=== PATIENT | female | born 1990 | race Caucasian/White ===

== ENCOUNTER 2017-02-10 17:10 | Emergency (ER) | payer MEDICAID ==
[~2017-02-10] VITALS: Ht 154.9 cm; Wt 113.4 kg
[2017-02-10 17:20] VITALS: BP 128/81
== END 2017-02-10 18:28 | disposition home or self-care (01) ==
LOC: ER 17:12
DX: H66.92 Otitis media, unspecified, left ear (principal)
CPT/HCPCS: 84703-TC; A4606; Q0162; Z7610

== ENCOUNTER 2020-08-15 16:14 | Emergency (ER) | payer MEDICAID ==
[~2020-08-15] VITALS: Ht 154.9 cm; Wt 76.2 kg
[2020-08-15 16:30] VITALS: BP 133/82
[2020-08-15] MEDS ORDERED: IBUP-1955 PO (18:30)
[2020-08-15] MEDS ORDERED: DOCO2CRE TP (18:30)
[2020-08-15] MEDS ORDERED: BENZ-13 PO (18:31)
--- NOTE | 2020-08-15 18:52 | NUR ---
Patient discharged to home in stable condition. Written and verbal after care instructions given. Patient verbalizes understanding of instruction.
== END 2020-08-15 18:52 | disposition home or self-care (01) ==
LOC: ER 16:24
DX: B34.9 Viral infection, unspecified (principal); B00.1 Herpesviral vesicular dermatitis; Z79.899 Other long term (current) drug therapy

== ENCOUNTER 2020-12-02 03:17 | Emergency (ER) | payer MEDICAID ==
[~2020-12-02] VITALS: Ht 154.9 cm; Wt 74.8 kg
[~2020-12-02 03:17] MED LIST: BENZ-13 PO; DOCO2CRE TP; IBUP-1955 PO
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
--- NOTE | 2020-12-02 03:50 | NUR ---
CALLED [facility] [id number] FOR MANDATED REPORT.
[2020-12-02 04:56] VITALS: BP 115/79
--- NOTE | 2020-12-02 04:56 | NUR ---
Patient discharged to home in stable condition. Written and verbal after care instructions given. Patient verbalizes understanding of instruction. Pt ambulatory with a steady gait
== END 2020-12-02 04:57 | disposition home or self-care (01) ==
LOC: ER 03:22
DX: S00.83XA Contusion of other part of head, initial encounter (principal); Y04.0XXA Assault by unarmed brawl or fight, initial encounter; Y93.89 Activity, other specified; Y92.89 Other specified places as the place of occurrence of the external cause; Y99.8 Other external cause status
CPT/HCPCS: 70450-TC

== ENCOUNTER 2020-12-17 23:03 | Emergency (ER) | payer MEDICAID ==
[~2020-12-17] VITALS: Ht 154.9 cm; Wt 74.8 kg
[2020-12-17 23:03] VITALS: BP 119/72
--- NOTE | 2020-12-17 23:24 | NUR ---
COVID SWAB AND STREP, COLLECTED, SENT TO LAB.
[2020-12-17] MEDS ORDERED: ACETAMINOPHEN 325 MG TABLET ONE (23:30)
[2020-12-17] MEDS ORDERED: ACETAMINOPHEN 325 MG TABLET PO ONE (23:30)
== END 2020-12-17 23:55 | disposition home or self-care (01) ==
LOC: ER 23:03
DX: J02.9 Acute pharyngitis, unspecified (principal); R51.9 Headache, unspecified; Z20.822 Contact with and (suspected) exposure to COVID-19
CPT/HCPCS: 87070; 87880; 99283; C9803; U0003; 86403-TC

== ENCOUNTER 2022-10-30 16:58 | Emergency (ER) | payer MEDICAID ==
[~2022-10-30] VITALS: Ht 154.9 cm; Wt 62.1 kg
[2022-10-30 17:19] VITALS: BP 118/75
--- NOTE | 2022-10-30 17:50 | NUR ---
Patient discharged to home in stable condition. Written and verbal after care instructions given. Patient verbalizes understanding of instruction.
== END 2022-10-30 17:51 | disposition home or self-care (01) ==
LOC: ER 17:02
DX: Z98.82 Breast implant status (principal)

== ENCOUNTER 2024-05-11 14:48 | Emergency (ER) | payer BC, MEDICAID ==
[~2024-05-11] VITALS: Ht 154.9 cm; Wt 72.6 kg
[2024-05-11 15:05] VITALS: BP 113/75; TEMP 98.3; O2SAT 98
[2024-05-11] MEDS: IV NS 0.9% 1,000 ML BAG IV ONE (15:52)
[2024-05-11] MEDS ORDERED: BENZ-13 PO (17:26)
== END 2024-05-11 18:03 | disposition home or self-care (01) ==
LOC: ER 14:52
DX: B34.9 Viral infection, unspecified (principal); H92.02 Otalgia, left ear; R05.9 Cough, unspecified; R53.1 Weakness; Z20.822 Contact with and (suspected) exposure to COVID-19
CPT/HCPCS: 99283; 96360; 87426; 87804 ×2; J7030

== ENCOUNTER 2024-05-13 17:56 | Emergency (ER) | payer BC ==
[~2024-05-13] VITALS: Ht 154.9 cm; Wt 68.0 kg
[2024-05-13] MEDS ORDERED: diphenhydrAMINE HCL 50 MG CAPSULE ONE ×2 (18:51→20:23)
[2024-05-13] MEDS ORDERED: FAMOTIDINE (20 MG) 20 MG TABLET ONE (18:52)
[2024-05-13] MEDS ORDERED: predniSONE 20 MG TABLET ONE (18:52)
[2024-05-13] MEDS: FAMOTIDINE (20 MG) 20 MG TABLET PO ONE (19:07)
[2024-05-13] MEDS: diphenhydrAMINE HCL 50 MG CAPSULE PO ONE ×2 (19:07→20:26)
[2024-05-13] MEDS: predniSONE 10 MG TABLET PO ONE (19:08)
[2024-05-13] MEDS ORDERED: PRED50TA PO (19:15)
[2024-05-13 20:58] VITALS: BP 141/79; TEMP 98.4; O2SAT 98
== END 2024-05-13 20:58 | disposition home or self-care (01) ==
LOC: ER 18:19
DX: T78.40XA Allergy, unspecified, initial encounter (principal); Z79.52 Long term (current) use of systemic steroids; X58.XXXA Exposure to other specified factors, initial encounter
CPT/HCPCS: 99284; Q0163 ×2; J7512

== ENCOUNTER 2024-12-20 05:55 | Emergency (ER) | payer BC ==
[~2024-12-20] VITALS: Ht 154.9 cm; Wt 49.9 kg
[~2024-12-20 05:55] MED LIST changes: +PRED50TA PO
[2024-12-20] MEDS ORDERED: AMOX500T2 PO (06:27)
[2024-12-20] MEDS ORDERED: KETOROLAC TROMETHAMINE 15 MG/ML VIAL ONE (06:37)
[2024-12-20] MEDS: KETOROLAC TROMETHAMINE 15 MG/ML VIAL IM ONE (06:41)
[2024-12-20] MEDS ORDERED: ACETAMINOPHEN ES 500 MG TABLET ONE (07:30)
[2024-12-20] MEDS: ACETAMINOPHEN ES 500 MG TABLET PO ONE (07:47)
[2024-12-20 08:06] VITALS: BP 130/85; TEMP 99.5; O2SAT 98
== END 2024-12-20 08:06 | disposition home or self-care (01) ==
LOC: ER 05:55
DX: J02.9 Acute pharyngitis, unspecified (principal); R50.9 Fever, unspecified; H92.01 Otalgia, right ear; R05.9 Cough, unspecified; Z79.52 Long term (current) use of systemic steroids; Z79.899 Other long term (current) drug therapy
CPT/HCPCS: 99283; 81025; 96372; 87070; 84703; 87880; J1885; 86403-TC